=== PATIENT | female | born 1945 | race Caucasian/White ===

== ENCOUNTER 2020-03-03 08:48 | Day surgery (SDC) | payer MEDICARE, BC ==
[~2020-03-03 08:48] MED LIST: CALCAVITD PO; CITA20 PO; DILTIAZEM 24HR240 M3 PO; METO50ER PO; NISOLDIPINE PO; PRAM.5 PO; PRAVASTATIN SOD10 MG PO; SIMVASTATIN PO; ZOLP5 PO
== END 2020-03-03 22:39 | disposition home or self-care (01) ==
LOC: ORSCMMR 08:48 → ORD 10:45 → ORSCMMR 10:45
DX: M17.12 Unilateral primary osteoarthritis, left knee (principal); Z53.9 Procedure and treatment not carried out, unspecified reason
CPT/HCPCS: J7120

== ENCOUNTER 2020-03-17 08:37 | Day surgery (SDC) | payer MEDICARE, BC ==
[~2020-03-17] VITALS: Ht 160 cm; Wt 67.3 kg
--- NOTE | 2020-03-17 09:44 | NUR ---
PT ADMITTED TO [facility]. AGREES WITH PLANNED SURGERY. LUNG SOUNDS CLEAR.
--- NOTE | 2020-03-17 09:49 | NUR ---
NOZIN TO NARES BILATERALLY.
--- NOTE | 2020-03-17 13:24 | NUR ---
1300-BLADDER SCAN SHOWS 69ML IN BLADDER.
--- NOTE | 2020-03-17 14:22 | NUR ---
1415-PT ARRIVED TO ROOM ON OWN BED, DROWSY BUT A/O X 4, PLEASANT. CAPILLAR REFIL TO BLE BRISK WITH WARMTH/COLOR TO TOES. KARISSA WRAP DRESSING OVER OPERATIVE L KNEE C/D/I, NO SHADOWING. POST OP VS COMMENCED AND STABLE, PT DENIES N/V, DENIES PAIN. SPINAL ANESTHESIA WITH MINIMAL MOVEMENT TO LARGE MOTOR BLE, UNABLE TO MOVE TOES AT THIS TIME, DENIES PAIN
--- NOTE | 2020-03-17 16:31 | NUR ---
ASSUMED CARE OF PATIENT. PT DOZING, AWAKENS TO VERBAL STIMULI, REPORTS GOOD PAIN CONTROL AT THIS TIME
--- NOTE | 2020-03-17 17:42 | NUR ---
SUMMARY PT INCONTINENT OF URINE, REPORTS HAS SOME NUMBNESS TO BILAT LEGS AND DID NOT FEEL A SENSATION THAT SHE NEEDED TO VOID. PT DENIES NAUSEA. PT REPORTS PAIN IS 2/10 WHICH IS ACCEPTABLE LEVEL TO HER. LEFT KNEE POLAR PACK IN PLACE, DRESSING DRY AND INTACT
--- NOTE | 2020-03-18 00:51 | NUR ---
REPORT GIVEN TO Lizette REGALADO RN, AND Cody CLARK RN.
--- NOTE | 2020-03-18 01:21 | NUR ---
ASSUMED CARE AT THIS TIME, PT IN BED, REPORTS PAIN OF 4/10 ON 0-10 SCALE, MEDICATED PER EMAR. REPORT RECEIVED FROM ABRAHAN EUGENE.
[2020-03-18 04:02] LABS: BASOPHILS ABSOLUTE AUTO 0.01 K/mm3 (0.00-0.23); BASOPHILS PERCENT AUTO 0 % (0-2); EOSINOPHILS PERCENT AUTO 0 % (0-6); Hematocrit 36.1 % (33.0-51.0); Hemoglobin 12.3 g/dL (11.5-16.0); IMMATURE GRAN ABSOLUTE AUTO 0.07 K/mm3 (0.00-0.10); IMMATURE GRAN PERCENT AUTO 1 % (0-1); LYMPHOCYTES ABSOLUTE AUTO 0.95 K/mm3 (0.84-5.20); LYMPHOCYTES PERCENT AUTO 6 % (21-46); MONOCYTES ABSOLUTE AUTO 0.36 K/mm3 (0.16-1.47); MONOCYTES PERCENT AUTO 2 % (4-13); Mean Corpuscular HGB 32.2 pg (26.0-34.0); Mean Corpuscular HGB Conc 34.1 g/dL (31.5-36.5); Mean Corpuscular Volume 95 fL (80-100); Mean Platelet Volume 10.3 fL (9.1-12.4); NEUTROPHILS ABSOLUTE AUTO 13.75 K/mm3 (1.96-9.15); NEUTROPHILS PERCENT AUTO 91 % (41-73); Platelet Count 238 K/mm3 (150-400); RDW Coefficient Variation 12.3 % (11.7-14.2); RDW Standard Deviation 42.3 fL (35.1-46.3); Red Blood Cell Count 3.82 M/mm3 (3.80-5.20); White Blood Cell Count 15.14 K/mm3 (4.00-11.30)
[2020-03-18 04:19] LABS: Anion Gap 5 mmol/L (6-16); Blood Urea Nitrogen 13 mg/dL (8-24); Bun/Creatinine Ratio 16.6 (12.0-20.0); CO2, Blood 24 mmol/L (21-32); Chloride, Blood 107 mmol/L (98-108); Creatinine, Blood 0.78 mg/dL (0.40-1.00); Glomerular Filtration Rate >60 (60-); Glucose, Blood 137 mg/dL (70-99); Potassium, Blood 4.8 mmol/L (3.5-5.5); Sodium, Blood 136 mmol/L (136-145)
--- NOTE | 2020-03-18 04:48 | NUR ---
SHIFT SUMMARY POD 1 L TKA, A/O X4, VSS, TOLERATING PO, AMBULATING WELL, VOIDING, PAIN CONTROLLED PER EMAR. POLAR PACK IN PLACE, CALL LIGHT IN REACH, WILL CONTINUE TO MONITOR AND REPORT TO ONCOMING DAY RN.
[2020-03-18] MEDS ORDERED: ASPI325 PO (10:36)
[2020-03-18] MEDS ORDERED: Aspir 8181 MG PO (10:37)
[2020-03-18] MEDS ORDERED: OXYC5 PO (10:38)
[2020-03-18] MEDS ORDERED: PROM25 PO (10:39)
--- NOTE | 2020-03-18 14:12 | NUR ---
PATIENT D/C'D HOME AT THIS TIME. D/C INSTRUCTIONS GIVEN BY Boy WALLACE. PAIN CONTROLLED, VOIDING, TOLERATING PO. NO ACUTE CHANGES.
--- NOTE | 2020-03-19 10:03 | NUR ---
03/19/20 Shin3 Cheryl Cline VERIFICATIONS, AUDITS.
== END 2020-03-18 14:12 | disposition home or self-care (01) ==
LOC: ORSCMMR 08:37 → ORD 10:45 → SURS 14:03 → ORSCMMR 03-18 14:12
PROVIDERS: Orthopaedic Surgery
PROC: 8E0YXBZ Computer Assisted Procedure of Lower Extremity (ICD-10-PCS; principal; 2020-03-17 10:45)
PROC: 0SRD0J9 Replacement of Left Knee Joint with Synthetic Substitute, Cemented, Open Approach (ICD-10-PCS; principal; 2020-03-17 10:45)
DX: M17.12 Unilateral primary osteoarthritis, left knee (principal); I10 Essential (primary) hypertension; I48.91 Unspecified atrial fibrillation; E78.5 Hyperlipidemia, unspecified; Z87.891 Personal history of nicotine dependence; Z79.899 Other long term (current) drug therapy
CPT/HCPCS: 36415; 73560-LT; 80048; 83735; 85025; 88300; 97110; 97116; 97162; C1713; C1776; J0171; J0690; J0735; J1100; J1170; J2250; J2370; J2405; J2704; J2795; J3010; J3370; J7120

== ENCOUNTER 2020-06-19 16:42 | Emergency (ER) | payer MEDICARE, BC ==
[~2020-06-19] VITALS: Ht 157.5 cm; Wt 67.1 kg
[~2020-06-19 16:42] MED LIST changes: +ASPI325 PO; +Aspir 8181 MG PO; +OXYC5 PO; +PROM25 PO
[2020-06-19] MEDS ORDERED: HYDR1TAB94 PO (21:02)
== END 2020-06-19 22:04 | disposition home or self-care (01) ==
LOC: ER 16:42
DX: S42.332A Displaced oblique fracture of shaft of humerus, left arm, initial encounter for closed fracture (principal); I10 Essential (primary) hypertension; F17.210 Nicotine dependence, cigarettes, uncomplicated; Z79.82 Long term (current) use of aspirin; Z79.899 Other long term (current) drug therapy; Z88.6 Allergy status to analgesic agent; Z88.8 Allergy status to other drugs, medicaments and biological substances; W01.10XA Fall on same level from slipping, tripping and stumbling with subsequent striking against unspecified object, initial encounter
CPT/HCPCS: 29105; 73060; 96374-59; 96375-59; 96376-59; 99283-25; A9270; J1170; J2405

== ENCOUNTER 2021-05-26 11:42 | Emergency (ER) | payer MEDICARE, BC ==
[~2021-05-26] VITALS: Ht 162.6 cm; Wt 68.0 kg
[~2021-05-26 11:42] MED LIST changes: +HYDR1TAB94 PO
== END 2021-05-26 12:40 | disposition home or self-care (01) ==
LOC: ER 11:42
DX: S01.01XA Laceration without foreign body of scalp, initial encounter (principal); I10 Essential (primary) hypertension; F17.210 Nicotine dependence, cigarettes, uncomplicated; Z88.8 Allergy status to other drugs, medicaments and biological substances; Z79.82 Long term (current) use of aspirin; Z79.899 Other long term (current) drug therapy; W19.XXXA Unspecified fall, initial encounter
CPT/HCPCS: 12002; 99283-25

== ENCOUNTER 2022-04-27 07:29 | Day surgery (SDC) | payer MEDICARE, BC ==
[~2022-04-27] VITALS: Ht 157.5 cm; Wt 65.7 kg
[2022-04-27] MEDS ORDERED: TRAZ100 (08:17)
--- NOTE | 2022-04-27 08:21 | NUR ---
Ambulatory in Day Surgery. Pre-Op teaching done. Pt verbalizes understanding. Patient states colon prep results clear. Patient confirms NPO status and agrees with scheduled surgery. Lungs clear T/O to Auscultation. Patient States Post-Procedure ride home has been arranged.
--- NOTE | 2022-04-27 10:05 | NUR ---
Discharge instructions reviewed with patient. Patient verbalizes understanding. Copy given to patient to take home. Discharged via wheelchair to private car for ride home.
--- NOTE | 2022-04-27 13:32 | NUR ---
04/27/22 1332 Chris Schulte LATE ENTRY: HISTORY, CHART, MEDICATIONS AND ALLERGIES REVIEWED BEFORE START OF PROCEDURE. PATIENT CONFIRMS NPO STATUS AND AGREES WITH SCHEDULED PROCEDURE. 3-LEAD EKG REVIEWED WITH PHYSICIAN PRIOR TO START OF PROCEDURE. MONITOR INTACT WITH CONTINUOUS PULSE OXIMETRY,CAPNOGRAPHY, 3-LEAD EKG, INTERMITTENT BP. SUPPLEMENTAL O2 TO BE TITRATED THROUGHOUT PROCEDURE TO MAINTAIN O2 SATURATION ABOVE 90%. PATIENT DETERMINED TO BE ASA APPROPRIATE FOR PROPOFOL SEDATION PRIOR TO START OF PROCEDURE BY DR. MON.
== END 2022-04-27 10:08 | disposition home or self-care (01) ==
LOC: ORSCMMR 07:29 → ORD 08:30 → ORSCMMR 10:08
PROVIDERS: Internal Medicine Gastroenterology
PROC: 0DBN8ZX Excision of Sigmoid Colon, Via Natural or Artificial Opening Endoscopic, Diagnostic (ICD-10-PCS; principal; 2022-04-27 08:30)
PROC: 0DBK8ZX Excision of Ascending Colon, Via Natural or Artificial Opening Endoscopic, Diagnostic (ICD-10-PCS; principal; 2022-04-27 08:30)
PROC: 0DBH8ZX Excision of Cecum, Via Natural or Artificial Opening Endoscopic, Diagnostic (ICD-10-PCS; principal; 2022-04-27 08:30)
PROC: 0DBM8ZX Excision of Descending Colon, Via Natural or Artificial Opening Endoscopic, Diagnostic (ICD-10-PCS; principal; 2022-04-27 08:30)
DX: Z12.11 Encounter for screening for malignant neoplasm of colon (principal); D12.0 Benign neoplasm of cecum; D12.2 Benign neoplasm of ascending colon; D12.4 Benign neoplasm of descending colon; D12.5 Benign neoplasm of sigmoid colon; K57.30 Diverticulosis of large intestine without perforation or abscess without bleeding; K64.8 Other hemorrhoids; F17.210 Nicotine dependence, cigarettes, uncomplicated; I48.91 Unspecified atrial fibrillation; Z79.899 Other long term (current) drug therapy
CPT/HCPCS: 88305; J2704; J7120

== ENCOUNTER 2022-09-24 12:47 | Emergency (ER) | payer MEDICARE, BC ==
[~2022-09-24] VITALS: Ht 157.5 cm; Wt 67.5 kg
[~2022-09-24 12:47] MED LIST changes: +TRAZ100
[2022-09-24] MEDS ORDERED: TRAZ50 PO (13:03)
[2022-09-24] MEDS ORDERED: MELO7.5 PO (13:04)
[2022-09-24 13:18] LABS: Source, Urine Clean Catch
[2022-09-24 13:22] LABS: Appearance, Urine Clear (Clear); Bilirubin, Urine Neg (Neg); Blood, Urine Neg (Neg); Color, Urine Yellow (P-Yellow); Glucose Qualitative, Urine Neg (Neg); Ketones, Urine Neg (Neg); Leukocyte Esterase, Urine 1+ (Neg); Nitrite, Urine Neg (Neg); Protein, Urine Neg (Neg); Urobilinogen, Urine NORM (Normal); pH, Urine 6.5 (5.0-8.0)
[2022-09-24 13:32] LABS: Bacteria Few /hpf; Red Blood Cells, Urine 0-2 /hpf (0-2); Squamous Epithelial Cells Mod /hpf (Few); Transitional Epithelial Cells Rare /hpf (0-Rare)
[2022-09-24 13:46] LABS: BASOPHILS ABSOLUTE AUTO 0.05 K/mm3 (0.00-0.23); BASOPHILS PERCENT AUTO 1 % (0-2); EOSINOPHILS ABSOLUTE AUTO 0.23 K/mm3 (0.00-0.68); EOSINOPHILS PERCENT AUTO 3 % (0-6); Hemoglobin 12.6 g/dL (11.5-16.0); IMMATURE GRAN ABSOLUTE AUTO 0.04 K/mm3 (0.00-0.10); IMMATURE GRAN PERCENT AUTO 1 % (0-1); LYMPHOCYTES ABSOLUTE AUTO 1.98 K/mm3 (0.84-5.20); LYMPHOCYTES PERCENT AUTO 27 % (21-46); MONOCYTES ABSOLUTE AUTO 0.42 K/mm3 (0.16-1.47); MONOCYTES PERCENT AUTO 6 % (4-13); Mean Corpuscular HGB 31.5 pg (26.0-34.0); Mean Corpuscular Volume 90 fL (80-100); Mean Platelet Volume 9.5 fL (9.1-12.4); NEUTROPHILS ABSOLUTE AUTO 4.52 K/mm3 (1.96-9.15); NEUTROPHILS PERCENT AUTO 62 % (41-73); Platelet Count 295 K/mm3 (150-400); RDW Coefficient Variation 12.7 % (11.7-14.2); RDW Standard Deviation 42.2 fL (35.1-46.3); White Blood Cell Count 7.24 K/mm3 (4.00-11.30)
[2022-09-24 14:07] LABS: Albumin/Globulin Ratio 1.2 (0.8-1.8); Bilirubin, Total 0.4 mg/dL (0.1-1.0); Bun/Creatinine Ratio 16.9 (12.0-20.0); Calcium, Blood 9.2 mg/dL (8.5-10.1); Creatinine, Blood 0.77 mg/dL (0.40-1.00); Globulin, Blood 3.3 g/dL (2.2-4.0); Potassium, Blood 4.2 mmol/L (3.5-5.5); Total Protein, Blood 7.3 g/dL (6.4-8.2)
[2022-09-24 14:30] LABS: Influenza A, PCR NEGATIVE (NEGATIVE); Influenza B, PCR NEGATIVE (NEGATIVE); Resp Syncytial Virus, PCR NEGATIVE (NEGATIVE); SARS-Cov-2 (COVID-19) PCR, MMC NEGATIVE (NEGATIVE)
[2022-09-24 17:47] LABS: Anti-Xa UFH, PHA Monitoring <0.10 IU/mL; International Normalized Ratio 0.96; Prothrombin Time Results 10.1 Sec (9.7-11.5)
== END 2022-09-24 19:10 | disposition short-term general hospital (02) ==
LOC: ER 12:47
PROVIDERS: Emergency Medicine; Student in an Organized Health Care Education/Training Program
DX: R53.1 Weakness (principal); R47.81 Slurred speech; I10 Essential (primary) hypertension; F17.210 Nicotine dependence, cigarettes, uncomplicated; Z20.822 Contact with and (suspected) exposure to COVID-19; Z88.6 Allergy status to analgesic agent; Z88.8 Allergy status to other drugs, medicaments and biological substances; Z79.899 Other long term (current) drug therapy
CPT/HCPCS: 0241U; 36415; 70450; 70496; 70498; 71046; 80053; 81001; 85025; 85520; 85610; 85730; 87086; 93005; 93010; 96360-59; 99285-25; A9270; J7030; Q9967

== ENCOUNTER 2023-01-10 15:16 | Emergency (ER) | payer MEDICARE, BC ==
[~2023-01-10] VITALS: Ht 157.5 cm; Wt 67.1 kg
[~2023-01-10 15:16] MED LIST changes: +MELO7.5 PO; +TRAZ50 PO
[2023-01-10 17:49] LABS: BASOPHILS ABSOLUTE AUTO 0.04 K/mm3 (0.00-0.23); BASOPHILS PERCENT AUTO 1 % (0-2); EOSINOPHILS ABSOLUTE AUTO 0.22 K/mm3 (0.00-0.68); EOSINOPHILS PERCENT AUTO 4 % (0-6); Hematocrit 31.5 % (33.0-51.0); Hemoglobin 10.9 g/dL (11.5-16.0); IMMATURE GRAN ABSOLUTE AUTO 0.02 K/mm3 (0.00-0.10); IMMATURE GRAN PERCENT AUTO 0 % (0-1); LYMPHOCYTES ABSOLUTE AUTO 1.85 K/mm3 (0.84-5.20); LYMPHOCYTES PERCENT AUTO 29 % (21-46); MONOCYTES ABSOLUTE AUTO 0.45 K/mm3 (0.16-1.47); MONOCYTES PERCENT AUTO 7 % (4-13); Mean Corpuscular HGB 31.5 pg (26.0-34.0); Mean Corpuscular HGB Conc 34.6 g/dL (31.5-36.5); Mean Corpuscular Volume 91 fL (80-100); Mean Platelet Volume 10.2 fL (9.1-12.4); NEUTROPHILS ABSOLUTE AUTO 3.79 K/mm3 (1.96-9.15); NEUTROPHILS PERCENT AUTO 60 % (41-73); Platelet Count 250 K/mm3 (150-400); RDW Standard Deviation 42.6 fL (35.1-46.3); Red Blood Cell Count 3.46 M/mm3 (3.80-5.20); White Blood Cell Count 6.37 K/mm3 (4.00-11.30)
[2023-01-10 18:05] LABS: Bicarbonate Venous 23.2 mmol/L (24.0-30.0); PCO2 Venous 39.7 mmHg (38-42); pH Blood Venous 7.39 (7.34-7.37)
[2023-01-10 18:08] LABS: Magnesium, Blood 2.3 mg/dL (1.6-2.4)
[2023-01-10 18:10] LABS: Albumin, Blood 3.8 g/dL (3.4-5.0); Albumin/Globulin Ratio 1.4 (0.8-1.8); Bilirubin, Total 0.4 mg/dL (0.1-1.0); Bun/Creatinine Ratio 18.9 (12.0-20.0); Calcium, Blood 9.1 mg/dL (8.5-10.1); Creatinine, Blood 0.95 mg/dL (0.40-1.00); Globulin, Blood 2.8 g/dL (2.2-4.0); Potassium, Blood 3.8 mmol/L (3.5-5.5); Thyroid Stimulating Hormone 0.952 uIU/mL (0.360-4.800); Total Protein, Blood 6.6 g/dL (6.4-8.2)
[2023-01-10 18:45] LABS: Source, Urine Clean Catch
[2023-01-10 19:11] LABS: Appearance, Urine Clear (Clear); Bilirubin, Urine Neg (Neg); Blood, Urine Neg (Neg); Color, Urine Yellow (P-Yellow); Glucose Qualitative, Urine Neg (Neg); Ketones, Urine Neg (Neg); Leukocyte Esterase, Urine Neg (Neg); Nitrite, Urine Neg (Neg); Protein, Urine Neg (Neg); Urobilinogen, Urine NORM (Normal)
[2023-01-10] MEDS ORDERED: PLAVIX75 MG PO (20:14)
[2023-01-10] MEDS ORDERED: MIDO5 PO (20:14)
[2023-01-10] MEDS ORDERED: ATOR40TA PO (20:14)
[2023-01-10 21:45] VITALS: BP 147/77
== END 2023-01-10 22:18 | disposition home or self-care (01) ==
LOC: ER 15:16
PROVIDERS: Student in an Organized Health Care Education/Training Program
DX: R06.02 Shortness of breath (principal); E78.5 Hyperlipidemia, unspecified; I10 Essential (primary) hypertension; Z79.899 Other long term (current) drug therapy; Z88.8 Allergy status to other drugs, medicaments and biological substances; Z88.6 Allergy status to analgesic agent; Z87.891 Personal history of nicotine dependence
CPT/HCPCS: 71046; 71260; 80053; 81003; 82803; 83735; 83880; 84443; 84484; 85025; 85379; 93005; 93010; J2405; Q9967

== ENCOUNTER 2023-08-05 13:03 | Emergency (ER) | payer MEDICARE, BC ==
[~2023-08-05] VITALS: Ht 157.5 cm; Wt 65.8 kg
[~2023-08-05 13:03] MED LIST changes: +ATOR40TA PO; +MIDO5 PO; +PLAVIX75 MG PO
[2023-08-05 15:45] LABS: BASOPHILS ABSOLUTE AUTO 0.04 K/mm3 (0.00-0.23); BASOPHILS PERCENT AUTO 1 % (0-2); EOSINOPHILS ABSOLUTE AUTO 0.28 K/mm3 (0.00-0.68); EOSINOPHILS PERCENT AUTO 3 % (0-6); Hemoglobin 11.6 g/dL (11.5-16.0); IMMATURE GRAN ABSOLUTE AUTO 0.03 K/mm3 (0.00-0.10); IMMATURE GRAN PERCENT AUTO 0 % (0-1); LYMPHOCYTES PERCENT AUTO 22 % (21-46); MONOCYTES ABSOLUTE AUTO 0.53 K/mm3 (0.16-1.47); MONOCYTES PERCENT AUTO 6 % (4-13); Mean Corpuscular HGB 30.7 pg (26.0-34.0); Mean Corpuscular HGB Conc 34.1 g/dL (31.5-36.5); Mean Corpuscular Volume 90 fL (80-100); Mean Platelet Volume 10.8 fL (9.1-12.4); NEUTROPHILS ABSOLUTE AUTO 5.88 K/mm3 (1.96-9.15); NEUTROPHILS PERCENT AUTO 68 % (41-73); Platelet Count 264 K/mm3 (150-400); RDW Coefficient Variation 14.5 % (11.7-14.2); RDW Standard Deviation 47.3 fL (35.1-46.3); Red Blood Cell Count 3.78 M/mm3 (3.80-5.20); White Blood Cell Count 8.66 K/mm3 (4.00-11.30)
[2023-08-05 16:06] LABS: Albumin/Globulin Ratio 1.2 (0.8-1.8); Bilirubin, Total 0.9 mg/dL (0.1-1.0); Bun/Creatinine Ratio 15.4 (12.0-20.0); Calcium, Blood 9.7 mg/dL (8.5-10.1); Creatinine, Blood 0.91 mg/dL (0.40-1.00); Globulin, Blood 3.4 g/dL (2.2-4.0); Magnesium, Blood 2.3 mg/dL (1.6-2.4); Potassium, Blood 4.1 mmol/L (3.5-5.5); Total Protein, Blood 7.4 g/dL (6.4-8.2)
[2023-08-05 18:37] VITALS: BP 115/74
== END 2023-08-05 18:38 | disposition home or self-care (01) ==
LOC: ER 13:03
PROVIDERS: Physician Assistant
DX: K57.32 Diverticulitis of large intestine without perforation or abscess without bleeding (principal); I95.1 Orthostatic hypotension; Z88.8 Allergy status to other drugs, medicaments and biological substances; Z79.899 Other long term (current) drug therapy; I10 Essential (primary) hypertension; I48.91 Unspecified atrial fibrillation; E78.5 Hyperlipidemia, unspecified; Z87.891 Personal history of nicotine dependence
CPT/HCPCS: 70450; 74174; 80053; 83605; 83690; 83735; 85025; 93005; 93010; 99285-25; Q9967

== ENCOUNTER → 2024-01-09 | Outpatient (CLI) | payer MEDICARE, BC ==
[2024-01-09 15:36] LABS: BASOPHILS ABSOLUTE AUTO 0.03 K/mm3 (0.00-0.23); BASOPHILS PERCENT AUTO 1 % (0-2); EOSINOPHILS ABSOLUTE AUTO 0.12 K/mm3 (0.00-0.68); EOSINOPHILS PERCENT AUTO 2 % (0-6); Hematocrit 32.5 % (33.0-51.0); Hemoglobin 11.4 g/dL (11.5-16.0); IMMATURE GRAN ABSOLUTE AUTO 0.02 K/mm3 (0.00-0.10); IMMATURE GRAN PERCENT AUTO 0 % (0-1); LYMPHOCYTES ABSOLUTE AUTO 1.51 K/mm3 (0.84-5.20); LYMPHOCYTES PERCENT AUTO 24 % (21-46); MONOCYTES PERCENT AUTO 5 % (4-13); Mean Corpuscular HGB 31.3 pg (26.0-34.0); Mean Corpuscular HGB Conc 35.1 g/dL (31.5-36.5); Mean Corpuscular Volume 89 fL (80-100); NEUTROPHILS ABSOLUTE AUTO 4.43 K/mm3 (1.96-9.15); NEUTROPHILS PERCENT AUTO 69 % (41-73); Platelet Count 227 K/mm3 (150-400); RDW Coefficient Variation 13.6 % (11.7-14.2); RDW Standard Deviation 44.5 fL (35.1-46.3); Red Blood Cell Count 3.64 M/mm3 (3.80-5.20); White Blood Cell Count 6.41 K/mm3 (4.00-11.30)
[2024-01-09 15:48] LABS: Albumin, Blood 3.7 g/dL (3.4-5.0); Albumin/Globulin Ratio 1.2 (0.8-1.8); Bilirubin, Total 0.8 mg/dL (0.1-1.0); Bun/Creatinine Ratio 17.2 (12.0-20.0); Calcium, Blood 9.1 mg/dL (8.5-10.1); Creatinine, Blood 1.22 mg/dL (0.40-1.00); Globulin, Blood 3.2 g/dL (2.2-4.0); Total Protein, Blood 6.9 g/dL (6.4-8.2)
== END | disposition home or self-care (01) ==
LOC: LAB SHORT 15:32 → LAB 15:32
PROVIDERS: Family Medicine
DX: R53.1 Weakness (principal)
CPT/HCPCS: 80053; 85025

== ENCOUNTER 2025-04-07 04:27 | Emergency (ER) | payer MEDICARE, BC ==
[~2025-04-07] VITALS: Ht 157.5 cm; Wt 66.7 kg
[2025-04-07 05:00] VITALS: BP 152/84
== END 2025-04-07 05:15 | disposition home or self-care (01) ==
LOC: ER 04:27
DX: S43.401A Unspecified sprain of right shoulder joint, initial encounter (principal); I10 Essential (primary) hypertension; E78.5 Hyperlipidemia, unspecified; I48.91 Unspecified atrial fibrillation; W06.XXXA Fall from bed, initial encounter; Z87.891 Personal history of nicotine dependence; Z79.02 Long term (current) use of antithrombotics/antiplatelets; Z79.899 Other long term (current) drug therapy; Z88.6 Allergy status to analgesic agent; Z88.8 Allergy status to other drugs, medicaments and biological substances
CPT/HCPCS: 73030; 73060; 99283-25; A9270

== ENCOUNTER → 2025-05-07 | Outpatient (CLI) | payer MEDICARE, BC | LOC: LAB 17:00 | DX: B37.9 Candidiasis, unspecified (principal) ==